=== PATIENT | male | born 1995 | race Hispanic/Latino ===

== ENCOUNTER 2019-03-11 04:53 | Emergency (ER) | payer OTHER ==
[~2019-03-11] VITALS: Ht 177.8 cm; Wt 63.6 kg
[2019-03-11] MEDS ORDERED: IBUP-359 PO (04:58)
[2019-03-11 07:01] LABS: BASO % 0.7 % (0.0-1.0); EOS # 0.1 10^3/uL (0.0-0.5); EOS % 0.9 % (0.0-3.0); HEMATOCRIT 42.2 % (42.0-52.0); HEMOGLOBIN 14.8 g/dl (13.5-17.5); LYMPH # 1.2 10^3/uL (1.5-5.0); LYMPH % 21.3 % (24.0-44.0); MEAN CORPUSCULAR HEMOGLOBIN 30.6 pg (27.0-33.0); MEAN CORPUSCULAR HGB CONC 35.1 g/dl (32.0-36.5); MEAN CORPUSCULAR VOLUME 87.2 fl (80.0-96.0); MONO # 0.4 10^3/uL (0.0-0.8); MONO % 6.7 % (0.0-5.0); NEUTROPHILS # 4.1 10^3/uL (1.5-8.5); NEUTROPHILS % 70.2 % (36.0-66.0); PLATELET COUNT, AUTOMATED 222 10^3/uL (150-450); RED BLOOD COUNT 4.84 10^6/uL (4.30-6.10); WHITE BLOOD COUNT 5.8 10^3/uL (4.0-10.0)
[2019-03-11 07:24] LABS: ALBUMIN 4.1 GM/DL (3.2-5.2); BILIRUBIN,DIRECT 0.2 MG/DL (0.0-0.2); BILIRUBIN,TOTAL 0.8 MG/DL (0.2-1.0); TOTAL PROTEIN 7.4 GM/DL (6.4-8.2)
--- NOTE | 2019-03-11 08:01 | REPVR ---
PROCEDURE INFORMATION: Exam: CT Abdomen And Pelvis Without Contrast Exam date and time: 03/11/2019 7:31 AM Age: 23 years old Clinical history: Abdominal pain; Localized; Left lower quadrant (llq); Additional info: Llq pain, L CVA tenderness TECHNIQUE: Imaging protocol: Computed tomography of the abdomen and pelvis without contrast. Radiation optimization: All CT scans at this facility use at least one of these dose optimization techniques: automated exposure control; mA and/or kV adjustment per patient size (includes targeted exams where dose is matched to clinical indication); or iterative reconstruction. COMPARISON: No relevant prior studies available. FINDINGS: Detailed evaluation of the abdominal and pelvic viscera is somewhat limited in the absence of intravenous contrast. Pleural space: No acute airspace or pleural disease. Liver: No focal hepatic mass. Gallbladder and bile ducts: No cholelithiasis or biliary ductal dilatation. Pancreas: No pancreatic mass or ductal dilatation. Spleen: Mildly enlarged spleen measuring 12.5 cm in length. Adrenals: Unremarkable adrenals. Kidneys and ureters: Normal renal morphology. No urolithiasis or hydronephrosis. Stomach and bowel: No significant small bowel dilatation. Prominent stool and diverticula, without pericolonic inflammation. Appendix: No acute appendicitis. Intraperitoneal space: No free fluid. Vasculature: Normal caliber of the abdominal aorta. Lymph nodes: Subcentimeter lymph nodes. Bladder: Nondistended bladder. Reproductive: Unremarkable as visualized. Bones/joints: Schmorl's nodes. Soft tissues: Unremarkable. IMPRESSION: 1. No urolithiasis or hydronephrosis. 2. Prominent stool and diverticula, without pericolonic inflammation. 3. Additional findings as described above. Electronically signed by: Fazal Roche On 03/11/2019 08:00:51 AM
[2019-03-11] MEDS ORDERED: NAPR-837 PO (08:49)
[2019-03-11] MEDS ORDERED: MIRA3350 PO (08:50)
[2019-03-11 09:13] VITALS: BP 119/76
== END 2019-03-11 09:23 | disposition home or self-care (01) ==
LOC: M ED 04:53
DX: K59.00 Constipation, unspecified (principal)

== ENCOUNTER → 2019-12-15 | Outpatient (RCR) | payer OTHER ==
[~2019-12-15] MED LIST: IBUP-359 PO; MIRA3350 PO; NAPR-837 PO
== END | disposition home or self-care (01) ==
LOC: M PT 10:14 → M OT 11:15
PROVIDERS: ATTEND Family Medicine
DX: I61.5 Nontraumatic intracerebral hemorrhage, intraventricular (principal)

== ENCOUNTER 2020-01-13 09:00 | Outpatient (RCR) | payer OTHER | END 2020-01-14 | LOC: M ST 09:00 | PROVIDERS: ATTEND Family Medicine | DX: I69.198 Other sequelae of nontraumatic intracerebral hemorrhage (principal) ==

== ENCOUNTER 2020-02-12 07:39 | Outpatient (RCR) | payer OTHER | END 2020-02-14 | LOC: M OT 07:39 | PROVIDERS: ATTEND Family Medicine | DX: I61.5 Nontraumatic intracerebral hemorrhage, intraventricular (principal); I69.198 Other sequelae of nontraumatic intracerebral hemorrhage ==

== ENCOUNTER 2020-03-09 07:37 | Outpatient (RCR) | payer OTHER | END 2020-03-15 | LOC: M PT 07:37 | PROVIDERS: ATTEND Family Medicine | DX: I61.5 Nontraumatic intracerebral hemorrhage, intraventricular (principal); I69.198 Other sequelae of nontraumatic intracerebral hemorrhage ==

== ENCOUNTER 2020-07-11 11:56 | Emergency (ER) | payer OTHER ==
[~2020-07-11] VITALS: Ht 177.8 cm; Wt 65.9 kg
--- NOTE | 2020-07-11 12:14 | ED PDOC ---
Post-Departure Follow-Up [facility] accessed. Patient informed Odell Barrera M.D. Jul 11, 2020 12:14
[2020-07-11] MEDS ORDERED: HYDR-3363 PO (12:28)
[2020-07-11] MEDS ORDERED: PARO20TA4 PO (12:28)
[2020-07-11] MEDS ORDERED: NOXI1TAB PO (12:28)
[2020-07-11] MEDS ORDERED: levETIRAcetam INJection 1,000 MG in D5W 100 ML IV ONE (12:30)
--- NOTE | 2020-07-11 12:35 | REP ---
INDICATION: seizure. COMPARISON: None. TECHNIQUE: Helical scanning is acquired. 5 mm axial images were reformatted. Coronal MPR images were generated. FINDINGS: Preliminary digital machine cell tuber radiograph demonstrates embolization material overlying the vertex in the parietal region. Bone window settings demonstrate intact bony calvarium. Visualized paranasal sinuses are clear. No intraorbital abnormality is seen. On soft tissue window settings, there is metallic embolization material near the vertex in the midline consistent with embolization of arteriovenous malformation. Some of this material is seen in the periventricular white matter and basal ganglia region on the left. 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 There is a small linear zone of encephalomalacia coursing into the cerebral peduncle on the left which also appears old. There are dilated veins in the subarachnoid space at the vertex above the metallic densities and 1 structure in the periventricular white matter of the left frontal parietal region. 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 There is no evidence of intracranial hemorrhage. No acute infarction is seen. No extra-axial fluid collection is seen. No mass or midline shift is observed. Study is otherwise unremarkable. IMPRESSION: Status post embolus therapy for arteriovenous malformation. There are some prominent vessels at the vertex in the sulci and subarachnoid space suggesting recurrence or incomplete resolution of the arteriovenous malformation. No parenchymal hemorrhage or acute infarction seen. Old encephalomalacia post treatment in the left basal ganglia, periventricular white matter of the left frontal lobe, and left cerebral peduncle.. <Electronically signed by Gareth Ralph > 07/11/20 [id number]
[2020-07-11] MEDS ORDERED: KEPP1TAB PO ×2 (13:24→13:41)
[2020-07-11 13:31] VITALS: BP 130/62
== END 2020-07-11 13:46 | disposition home or self-care (01) ==
LOC: M ED 11:56
DX: R56.9 Unspecified convulsions (principal); I61.5 Nontraumatic intracerebral hemorrhage, intraventricular; I67.1 Cerebral aneurysm, nonruptured; F43.10 Post-traumatic stress disorder, unspecified; Z86.73 Personal history of transient ischemic attack (TIA), and cerebral infarction without residual deficits; Z79.899 Other long term (current) drug therapy
CPT/HCPCS: 70450; 96365; 99284; J1953

== ENCOUNTER 2020-10-26 16:22 | Emergency (ER) | payer OTHER ==
[~2020-10-26] VITALS: Ht 177.8 cm; Wt 67.3 kg
[~2020-10-26 16:22] MED LIST changes: +HYDR-3363 PO; +KEPP1TAB PO; +NOXI1TAB PO; +PARO20TA4 PO
[2020-10-26 16:23] VITALS: BP 112/70
[2020-10-26] MEDS ORDERED: SENN-52 (17:03)
[2020-10-26] MEDS ORDERED: FLUO20CA22 (17:03)
[2020-10-26] MEDS ORDERED: VITA1CAP25 (17:03)
[2020-10-26] MEDS ORDERED: LAMO150T3 (17:03)
== END 2020-10-26 20:10 | disposition left against medical advice (07) ==
LOC: M ED 16:22
DX: Z53.21 Procedure and treatment not carried out due to patient leaving prior to being seen by health care provider (principal)

== ENCOUNTER → 2020-11-10 | Outpatient (REF) ==
[~2020-11-10] MED LIST changes: +FLUO20CA22; +LAMO150T3; +SENN-52; +VITA1CAP25
--- NOTE | 2020-11-10 15:26 | REP ---
INDICATION: PLATE AND SCREWS. COMPARISON: None. TECHNIQUE: Five views of the right hand are provided. FINDINGS: Five views of the right hand demonstrate a screw plate fixation device over the 5th metacarpal consistent with previous open reduction internal fixation. Overall mineralization pattern is normal. There is a flexion deformity at the IP joint of the thumb and another flexion deformity is seen at the PIP joint of the index finger. Bones, joints, and soft tissues are otherwise unremarkable.. No fracture or subluxation is seen. No opaque foreign body noted. IMPRESSION: No acute bony abnormality. Status post open reduction internal fixation the 5th metacarpal. Flexion deformities the index finger and thumb.. <Electronically signed by Gareth Ralph > 11/10/20 1118
== END ==
LOC: M PLAIMG 13:32
PROVIDERS: ATTEND Internal Medicine
DX: S62.306D Unspecified fracture of fifth metacarpal bone, right hand, subsequent encounter for fracture with routine healing (principal); Z96.7 Presence of other bone and tendon implants

== ENCOUNTER 2021-07-29 15:27 | Emergency (ER) | payer OTHER ==
[~2021-07-29] VITALS: Ht 177.8 cm; Wt 81.8 kg
[2021-07-29 15:27] VITALS: BP 124/72
[2021-07-29] MEDS ORDERED: POLY510P14 PO (16:01)
[2021-07-29] MEDS ORDERED: LAMO200T94 PO (16:01)
[2021-07-29] MEDS ORDERED: KETOROLAC 30 MG/ML 1ML VIAL IV ONE (17:55)
[2021-07-29 18:05] LABS: BASO % 0.5 % (0.0-1.0); EOS # 0.1 10^3/uL (0.0-0.5); HEMATOCRIT 40.7 % (42.0-52.0); HEMOGLOBIN 13.7 g/dl (13.5-17.5); LYMPH # 0.9 10^3/uL (1.5-5.0); LYMPH % 14.4 % (24.0-44.0); MEAN CORPUSCULAR HEMOGLOBIN 29.3 pg (27.0-33.0); MEAN CORPUSCULAR HGB CONC 33.7 g/dl (32.0-36.5); MEAN CORPUSCULAR VOLUME 87.2 fl (80.0-96.0); MONO # 0.4 10^3/uL (0.0-0.8); MONO % 5.8 % (2.0-8.0); NEUTROPHILS # 4.9 10^3/uL (1.5-8.5); NEUTROPHILS % 77.7 % (36.0-66.0); PLATELET COUNT, AUTOMATED 237 10^3/uL (150-450); RED BLOOD COUNT 4.67 10^6/uL (4.30-6.10); WHITE BLOOD COUNT 6.3 10^3/uL (4.0-10.0)
[2021-07-29 18:25] LABS: ERYTHROCYTE SEDIMENTATION RATE 8 mm/hr (0-15)
[2021-07-29 18:28] LABS: BLOOD UREA NITROGEN 13 MG/DL (7-18); CALCIUM LEVEL 9.3 MG/DL (8.5-10.1); CARBON DIOXIDE LEVEL 29 MEQ/L (21-32); CHLORIDE LEVEL 106 MEQ/L (98-107); CREATININE FOR GFR 0.91 MG/DL (0.70-1.30); GLOMERULAR FILTRATION RATE > 60.0 (>60); GLUCOSE, FASTING 93 MG/DL (70-100); POTASSIUM SERUM 4.5 MEQ/L (3.5-5.1); SODIUM LEVEL 139 MEQ/L (136-145)
[2021-07-29] MEDS ORDERED: NORCO, ANEXSIA 5/325MG TABLET (HYDROcodone/ACETAMINOPHEN) PO ONE (19:45)
== END 2021-07-29 20:09 | disposition home or self-care (01) ==
LOC: M ED 15:27
DX: M25.511 Pain in right shoulder (principal); R06.02 Shortness of breath; G40.509 Epileptic seizures related to external causes, not intractable, without status epilepticus; Z86.79 Personal history of other diseases of the circulatory system; Z98.2 Presence of cerebrospinal fluid drainage device
CPT/HCPCS: 71046; 80048; 84484; 85025; 85379; 85652; 86140; 93005; 93971; 96374; 99284; J1885

== ENCOUNTER → 2022-04-20 | Outpatient (CLI) | payer MEDICARE, OTHER ==
[~2022-04-20] MED LIST changes: +LAMO200T94 PO; +POLY510P14 PO
== END ==
LOC: M RAD 13:49
PROVIDERS: ATTEND Neurological Surgery
DX: Q28.2 Arteriovenous malformation of cerebral vessels (principal)

== ENCOUNTER 2022-08-11 11:14 | Emergency (ER) | payer OTHER ==
[~2022-08-11] VITALS: Ht 175.3 cm; Wt 86.4 kg
[2022-08-11] MEDS ORDERED: ACETAMINOPHEN TAB 650MG DOSE (2X325MG) PO ONE (12:45)
[2022-08-11 13:49] VITALS: BP 134/82
== END 2022-08-11 13:59 | disposition home or self-care (01) ==
LOC: EDBD 11:14 → M ED 11:14 → EDSEX 11:14 → M ED 13:59
DX: S13.4XXA Sprain of ligaments of cervical spine, initial encounter (principal); S33.5XXA Sprain of ligaments of lumbar spine, initial encounter; V49.40XA Driver injured in collision with unspecified motor vehicles in traffic accident, initial encounter; G40.909 Epilepsy, unspecified, not intractable, without status epilepticus; F17.200 Nicotine dependence, unspecified, uncomplicated; M54.50 Low back pain, unspecified; Z86.79 Personal history of other diseases of the circulatory system; Z79.83 Long term (current) use of bisphosphonates; Z79.899 Other long term (current) drug therapy

== ENCOUNTER → 2023-05-14 | Outpatient (CLI) | payer MEDICARE, OTHER | LOC: M RAD 08:02 | PROVIDERS: ATTEND Neurological Surgery | DX: Q28.2 Arteriovenous malformation of cerebral vessels (principal) ==